=== PATIENT | female | born 1985 | race Caucasian/White ===

== ENCOUNTER 2018-04-01 18:05 | Emergency (ER) | payer OTHER ==
[2018-04-01 19:27] VITALS: BP 129/65
[2018-04-01] MEDS ORDERED: Ibuprofen TAB* 400 MG PO ONE (19:31)
--- NOTE | 2018-04-01 20:25 | RAD ---
INDICATION: Lateral foot pain after hitting foot on monkey bars COMPARISON: None. TECHNIQUE: 3 views of the left foot were obtained. FINDINGS: The adequately corticated bones are properly aligned. Joint spaces appear maintained. No fracture, dislocation or focal bony abnormality is seen. IMPRESSION: Normal radiograph of the left foot. If the patient's symptoms persist, follow-up imaging is recommended.
--- NOTE | 2018-04-01 21:29 | ED ---
Abigail Cazares Jade, scribed for Henry Humphrey MD on 04/01/18 at 1938 . Lower Extremity - HPI Summary HPI Summary: Pt is a 32 y/o female who presents to [facility] s/p foot injury at 16:15. She states that she fell off the monkey bars while playing with her child, and the bottom of her left foot struck the bar. Pt is unable to bear weight on her foot. She denies any injury to her hip, knee, or back. - History of Current Complaint Chief Complaint: UCLowerExtremity Stated Complaint: FOOT INJURY Time Seen by Provider: 04/01/18 19:24 Hx Obtained From: Patient Hx Last Menstrual Period: 2 weeks Mechanism Of Injury: Direct Blow Onset of Pain: Post Accident - 16:15 Onset/Duration: Still Present Severity Currently: Moderate Pain Intensity: 6 Pain Scale Used: 0-10 Numeric Location: Is Discrete @ - Left foot Aggravating Factor(s): Weight Bearing - Allergies/Home Medications Allergies/Adverse Reactions: Allergies Allergy/AdvReac Type Severity Reaction Status Date / Time morphine Allergy Severe Itching Verified 04/01/18 19:27 Home Medications: Home Medications Sertraline* [Zoloft*] 1 tab PO DAILY 04/01/18 [History Confirmed 04/01/18] PMH/Surg Hx/FS Hx/Imm Hx Endocrine/Hematology History: Denies: Hx Diabetes, Hx Thyroid Disease Cardiovascular History: Denies: Hx Hypertension, Hx Pacemaker/ICD Respiratory History: Denies: Hx Asthma, Hx Chronic Obstructive Pulmonary Disease (COPD) GI History: Denies: Hx Ulcer History: Denies: Hx Renal Disease Sensory History: Denies: Hx Hearing Aid Psychiatric History: Reports: Hx Attention Deficit Hyperactivity Disorder, Hx Depression, Hx Panic Disorder - WO; BE OK - Surgical History Surgery Procedure, Year, and Place: 2006 WISDOM TEETH REMOVED. 2012 RIGHT BREAST CYST DRAINED. 2014 C SECTION Infectious Disease History: No Infectious Disease History: Denies: Hx Hepatitis, Hx Human Immunodeficiency Virus (HIV), Hx of Known/ Suspected MRSA, Traveled Outside the [place] in Last 30 Days - Family History Family History: father had a ruptured lumbar disc - Social History Alcohol Use: Occasionally Substance Use Type: Reports: None Smoking Status (MU): Former Smoker Type: Cigarettes Amount Used/How Often: 1/2 ppd Have You Smoked in the Last Year: Yes Review of Systems Negative: Fever Positive: Myalgia - Left foot pain, Other - NEGATIVE: Hip, leg, or back pain All Other Systems Reviewed And Are Negative: Yes Physical Exam - Summary Physical Exam Summary: Appearance: Well appearing, no pain distress Skin: warm, dry, reflects adequate perfusion Head/face: normal Eyes: EOMI, CLEMENCIA ENT: normal Neck: supple, non-tender Respiratory: CTA, breath sounds present Cardiovascular: RRR, pulses symmetrical Abdomen: non-tender, soft Bowel Sounds: present Musculoskeletal: strength/ROM intact. Calf soft. Slight ecchymosis and edema over lateral aspect of left mid-foot. Intact Achilles tendon. No medial or lateral malleolar tenderness. No tenderness at talus and cuboid. Tender at head of fifth metatarsal Neuro: normal, sensory motor intact, A&Ox3 Triage Information Reviewed: Yes Vital Signs On Initial Exam: Initial Vitals Temp Pulse Resp BP Pulse Ox 98.1 F 76 16 129/65 100 04/01/18 19:20 04/01/18 19:20 04/01/18 19:20 04/01/18 19:20 04/01/18 19:20 Vital Signs Reviewed: Yes Procedures - Procedure Summary Procedure Summary: CLINTON wrap around left foot. Diagnostics - Vital Signs Vital Signs Temp Pulse Resp BP Pulse Ox 04/01/18 19:20 98.1 F 76 16 129/65 100 - Laboratory Lab Statement: Any lab studies that have been ordered have been reviewed, and results considered in the medical decision making process. Lower Extremity Course/Dx - Course Course Of Treatment: X-rays are negative. Minimal bruising and negligible swelling. Symptomatically. Patient is ambulatory. - Diagnoses Differential Diagnosis/HQI/PQRI: Positive: Other - Fracture versus contusion Provider Diagnoses: Contusion of left foot Discharge - Sign-Out/Discharge Documenting (check all that apply): Discharge/Admit/Transfer - Discharge - Discharge Plan Condition: Good Disposition: HOME Patient Education Materials: Contusion in Adults (ED) Referrals: Donovan Alonso MD [Primary Care Provider] - Additional Instructions: Ice, elevate, Clinton wrap for comfort. Weight-bear as tolerated. Return if worse , new symptoms or other concerns as discussed. - Billing Disposition and Condition Condition: GOOD Disposition: Home The documentation as recorded by the Abigail leroy Jade accurately reflects the service I personally performed and the decisions made by me, Henry Humphrey MD.
== END 2018-04-01 19:50 | disposition home or self-care (01) ==
LOC: UCEAST 18:05
DX: S90.32XA Contusion of left foot, initial encounter (principal); W09.2XXA Fall on or from jungle gym, initial encounter; Y93.89 Activity, other specified; Y92.838 Other recreation area as the place of occurrence of the external cause; Z88.5 Allergy status to narcotic agent; F90.9 Attention-deficit hyperactivity disorder, unspecified type; F41.0 Panic disorder [episodic paroxysmal anxiety]; F32.9 Major depressive disorder, single episode, unspecified; Z87.891 Personal history of nicotine dependence
CPT/HCPCS: 99212; A9270-GY; G0463

== ENCOUNTER 2019-05-21 15:31 | Inpatient (IN) | payer OTHER ==
[2019-05-21] MEDS ORDERED: Lactated Ringers 1000 ML Bag* 1,000 ML IV ONE (16:13)
[2019-05-21] MEDS ORDERED: Buffered Lidocaine 1% SYRIN* 1 ML/SYRINGE INTRADERM ONE (16:13)
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
[2019-05-21] MEDS ORDERED: Penicillin G Potassium IV* 5,000,000 UNITS in NS 0.9% 100 ML* 100 ML IVPB ONE (16:30)
[2019-05-21] MEDS ORDERED: Lactated Ringers 1000 ML Bag* 1,000 ML IV SCH ×2 (17:00→21:00)
[2019-05-21 17:30] LABS: ABS Basophils 0.1 10^3/ul (0-0.2); ABS Lymphocytes 1.3 10^3/ul (1.0-4.8); ABS Monocytes 1.5 10^3/ul (0-0.8); ABS Neutrophils 20.2 10^3/ul (1.5-7.7); Hematocrit 32 % (35-47); Hemoglobin 9.9 g/dL (12.0-16.0); Lymphocyte % 5.7 %; Mean Corpuscular HGB Conc 31 g/dL (31-36); Mean Corpuscular Hemoglobin 22 pg (27-31); Mean Corpuscular Volume 71 fL (80-97); Mean Platelet Volume 9.6 fL (7.4-10.4); Platelet Count 191 10^3/uL (150-450); Red Blood Count 4.49 10^6 /uL (3.70-4.87); Red Cell Distribution Width 19 % (10-15); White Blood Count 23.1 10^3/uL (3.5-10.8)
[2019-05-21 17:49] LABS: Albumin 3.4 g/dL (3.2-5.2); Albumin/Globulin Ratio 1.2 (1-3); BUN/Creatinine Ratio 11.1 (8-20); Calcium 9.1 mg/dL (8.6-10.3); EGFR African American 133.4 (>60); EGFR Non-African American 110.2 (>60); Globulin 2.8 g/dL (2-4); Potassium 3.9 mmol/L (3.5-5.0); Total Bilirubin 1.3 mg/dL (0.2-1.0); Total Protein 6.2 g/dL (6.4-8.9)
[2019-05-21 17:55] LABS: Microcytosis 2+; Polychromasia 1+
[2019-05-21] MEDS: Penicillin G Potassium IV* 2,500,000 UNITS in NS 0.9% 100 ML* 100 ML IVPB SCH (18:02)
[2019-05-21 18:14] LABS: Hepatitis B Surface Antigen Negative (Negative)
[2019-05-21] MEDS ORDERED: ceFOXitin 2 GM IVPREMIX* 2 GM/50 ML BAG IVPB ONE (18:17)
[2019-05-21] MEDS ORDERED: ceFOXitin 2 GM IVPREMIX* 2 GM/50 ML BAG ONE (18:29)
[2019-05-21 18:32] LABS: Hepatitis C Antibody Negative (Negative)
[2019-05-21 18:37] LABS: HIV 4th Generation Negative (Negative)
[2019-05-21] MEDS ORDERED: Ondansetron INJ* 2 MG/ML VIAL ONE (19:20)
[2019-05-21] MEDS ORDERED: Ketorolac INJ* 30 MG/ML 1 ML VIAL ONE (19:20)
[2019-05-21] MEDS ORDERED: OXYTOCIN* 10 UNITS/ML 1 ML VIAL ONE (19:20)
[2019-05-21] MEDS ORDERED: Phenylephrine 40 MCG/ML SYRINGE ONE (19:20)
[2019-05-21] MEDS ORDERED: Acetaminophen IV 1GM/100ML * 1,000 MG/100 ML VIAL IVPB ONE (19:31)
[2019-05-21] MEDS ORDERED: DiMENhydriNATE IV* 50 MG/ML VIAL IV PUSH PRN (19:31)
[2019-05-21] MEDS ORDERED: Naloxone* 0.4 MG/ML 1 ML VIAL IV PRN (19:31)
[2019-05-21] MEDS ORDERED: EPHEDrine (Pressors)* 50 MG/ML VIAL ONE (19:36)
[2019-05-21] MEDS ORDERED: Zolpidem TAB* 5 MG PO PRN (20:04)
[2019-05-21] MEDS ORDERED: Glycerin ADULT SUPP PR PRN (20:04)
[2019-05-21] MEDS ORDERED: Dibucaine 1% 28.35 GM TUBE PR PRN (20:04)
[2019-05-21] MEDS ORDERED: Witch Hazel PAD* JAR TOPICAL PRN (20:04)
[2019-05-21] MEDS: Acetaminophen TAB* 325 MG PO PRN (21:37)
[2019-05-21] MEDS: Simethicone TAB* 80 MG TAB.CHEW PO SCH (21:37)
[2019-05-21] MEDS: Docusate CAP* 100 MG PO SCH (21:37)
[2019-05-22 01:04] LABS: Urine Benzodiazepine Screen None Detected (None Detect); Urine Opiates Screen None Detected (None Detect)
[2019-05-22] MEDS: Ketorolac INJ* 30 MG/ML 1 ML VIAL IV SCH ×4 (02:09→21:00)
[2019-05-22] MEDS: Acetaminophen TAB* 325 MG PO PRN ×2 (06:02→10:52)
[2019-05-22] MEDS ORDERED: diPHENhydraMINE PO* 25 MG PO ONE (06:30)
[2019-05-22] MEDS: oxyCODONE TAB* 5 MG TAB PO PRN ×3 (06:35→15:05)
[2019-05-22] MEDS: Simethicone TAB* 80 MG TAB.CHEW PO SCH ×4 (08:18→21:00)
[2019-05-22] MEDS: Docusate CAP* 100 MG PO SCH ×3 (08:18→21:00)
[2019-05-22 09:57] LABS: ABS Lymphocytes 0.9 10^3/ul (1.0-4.8); ABS Monocytes 1.3 10^3/ul (0-0.8); ABS Neutrophils 12.5 10^3/ul (1.5-7.7); Hematocrit 25 % (35-47); Hemoglobin 8.1 g/dL (12.0-16.0); Lymphocyte % 6.3 %; Mean Corpuscular HGB Conc 32 g/dL (31-36); Mean Corpuscular Hemoglobin 23 pg (27-31); Mean Corpuscular Volume 71 fL (80-97); Platelet Count 171 10^3/uL (150-450); Red Blood Count 3.56 10^6 /uL (3.70-4.87); Red Cell Distribution Width 19 % (10-15); White Blood Count 14.7 10^3/uL (3.5-10.8)
[2019-05-22] MEDS: Ferrous Gluconate TAB* 324 MG TAB PO SCH ×2 (10:51→21:29)
[2019-05-22] MEDS ORDERED: Calcium Carbonate CHEW TAB* 500 MG (TUMS) PO PRN (17:53)
[2019-05-22] MEDS: oxyCODONE/Acetamin 5/325 MG* TAB PO PRN ×2 (19:09→23:10)
[2019-05-22] MEDS: Penicillin G Potassium IV* 2,500,000 UNITS in NS 0.9% 100 ML* 100 ML IVPB SCH (21:30)
[2019-05-22] MEDS ORDERED: Ibuprofen TAB* 600 MG PO SCH (23:45)
[2019-05-23] MEDS: Ibuprofen TAB* 600 MG PO SCH ×3 (03:00→16:34)
[2019-05-23] MEDS: oxyCODONE/Acetamin 5/325 MG* TAB PO PRN ×2 (05:07→11:05)
[2019-05-23 07:48] VITALS: BP 104/57
[2019-05-23] MEDS: Simethicone TAB* 80 MG TAB.CHEW PO SCH ×3 (08:18→16:35)
[2019-05-23] MEDS: Docusate CAP* 100 MG PO SCH ×2 (08:19→14:37)
[2019-05-23] MEDS: Ferrous Gluconate TAB* 324 MG TAB PO SCH (08:36)
--- NOTE | 2019-05-23 12:05 | PN ---
Progress Note - Progress Note Date of Service: 05/23/19 - POD#2 s/p repeat section after failure of trial of labor after CS Note: Patient is 33 year old with no care , POD #2 s/p Repeat section who states she had labor for several days at home attempting TOLAC but stalled in progress at home and came to the hospital for evaluation and delivery. She is having incisional pain and gas pain. She took 2 percoset last night and again this morning. She says it makes her and the baby sleepy and wants to take less narcotic pain medicine. She has passed flatus but no bowel movement. She had decreased appetite until this morning. She is tried regular diet this morning. She is able to void urine without difficulty. Patient is breast feeding . Vital Signs Temp 97.7 F 05/23/19 07:46 Pulse 109 05/23/19 07:46 Resp 16 05/23/19 11:05 BP 104/57 05/23/19 07:46 Pulse Ox 96 05/23/19 07:46 Intake & Output 05/22/19 05/23/19 05/23/19 18:59 06:59 18:59 Output Total 2650 Balance -2650 Output: Urine 400 Isaac 2250 abdomen: soft, distended, mild tenderness, incision dry and intact lochia: scant extremities: nontender, no edema Laboratory Results - last 24 hr 05/21/19 16:55 Syphilis IgG Antibody Negative 05/21/19 05/21/19 05/21/19 16:55 16:55 16:55 WBC 23.1 H RBC 4.49 Hgb 9.9 L Hct 32 L MCV 71 L MCH 22 L MCHC 31 RDW 19 H Plt Count 191 MPV 9.6 Neut % (Auto) 87.6 Lymph % (Auto) 5.7 [place] % (Auto) 6.5 Eos % (Auto) 0.0 Baso % (Auto) 0.2 Absolute Neuts (auto) 20.2 H Absolute Lymphs (auto) 1.3 Absolute Monos (auto) 1.5 H Absolute Eos (auto) 0.0 Absolute Basos (auto) 0.1 Absolute Nucleated RBC 0.0 Nucleated RBC % 0.0 Polychromasia 1+ Anisocytosis 2+ Microcytosis 2+ Macrocytosis 1+ Sodium 125 L Potassium 3.9 Chloride 94 L Carbon Dioxide 16 L Anion Gap 15 H BUN 7 Creatinine 0.63 Est GFR ( Amer) 133.4 Est GFR (Non-Af Amer) 110.2 BUN/Creatinine Ratio 11.1 Glucose 125 H Calcium 9.1 Total Bilirubin 1.30 H AST 21 ALT 9 Alkaline Phosphatase 181 H Total Protein 6.2 L Albumin 3.4 Globulin 2.8 Albumin/Globulin Ratio 1.2 Urine Opiates Screen Ur Barbiturates Screen Ur Phencyclidine Scrn Ur Amphetamines Screen U Benzodiazepines Scrn Urine Cocaine Screen U Cannabinoids Screen Syphilis IgG Antibody Hep Bs Antigen Hepatitis C Antibody Hepatitis C Ab Index HIV 1&2 Ab/P24 Ag 4thGn Rubella Screen Blood Type O Positive Antibody Screen Negative 05/21/19 05/21/19 05/22/19 16:55 16:55 00:37 WBC RBC Hgb Hct MCV MCH MCHC RDW Plt Count MPV Neut % (Auto) Lymph % (Auto) [place] % (Auto) Eos % (Auto) Baso % (Auto) Absolute Neuts (auto) Absolute Lymphs (auto) Absolute Monos (auto) Absolute Eos (auto) Absolute Basos (auto) Absolute Nucleated RBC Nucleated RBC % Polychromasia Anisocytosis Microcytosis Macrocytosis Sodium Potassium Chloride Carbon Dioxide Anion Gap BUN Creatinine Est GFR ( Amer) Est GFR (Non-Af Amer) BUN/Creatinine Ratio Glucose Calcium Total Bilirubin AST ALT Alkaline Phosphatase Total Protein Albumin Globulin Albumin/Globulin Ratio Urine Opiates Screen None detected Ur Barbiturates Screen None detected Ur Phencyclidine Scrn None detected Ur Amphetamines Screen None detected U Benzodiazepines Scrn None detected Urine Cocaine Screen None detected U Cannabinoids Screen None detected Syphilis IgG Antibody Negative Hep Bs Antigen Negative Hepatitis C Antibody Negative Hepatitis C Ab Index 0.01 HIV 1&2 Ab/P24 Ag 4thGn Negative Rubella Screen Immune Blood Type Antibody Screen 05/22/19 09:47 WBC 14.7 H RBC 3.56 L Hgb 8.1 L Hct 25 L MCV 71 L MCH 23 L MCHC 32 RDW 19 H Plt Count 171 MPV 9.0 Neut % (Auto) 84.9 Lymph % (Auto) 6.3 [place] % (Auto) 8.7 Eos % (Auto) 0.0 Baso % (Auto) 0.1 Absolute Neuts (auto) 12.5 H Absolute Lymphs (auto) 0.9 L Absolute Monos (auto) 1.3 H Absolute Eos (auto) 0.0 Absolute Basos (auto) 0.0 Absolute Nucleated RBC 0.0 Nucleated RBC % 0.0 Polychromasia Anisocytosis Microcytosis Macrocytosis Sodium Potassium Chloride Carbon Dioxide Anion Gap BUN Creatinine Est GFR ( Amer) Est GFR (Non-Af Amer) BUN/Creatinine Ratio Glucose Calcium Total Bilirubin AST ALT Alkaline Phosphatase Total Protein Albumin Globulin Albumin/Globulin Ratio Urine Opiates Screen Ur Barbiturates Screen Ur Phencyclidine Scrn Ur Amphetamines Screen U Benzodiazepines Scrn Urine Cocaine Screen U Cannabinoids Screen Syphilis IgG Antibody Hep Bs Antigen Hepatitis C Antibody Hepatitis C Ab Index HIV 1&2 Ab/P24 Ag 4thGn Rubella Screen Blood Type Antibody Screen Assessment: Patient is POD#2 with no care, failed home , anemia, MBT O positive, rubella immune, hep B surface antigen negative, syphilis negative anemia Plan: encourage ambulation, diet as tolerated, iron supplementation when bowel function improves. Meenakshi Almanzar MD
[2019-05-23] MEDS: Acetaminophen TAB* 325 MG PO PRN (18:33)
[2019-05-24 16:45] LABS: Varicella IgG Antibody Index 0.8; Varicella-Zoster IgG Antibody Negative
[2019-05-25 00:38] LABS: Varicella-Zoster IgM Antibody Negative (Negative)
--- NOTE | 2019-05-28 16:23 | OP ---
CC: Dr. Pires, [facility] * DATE OF OPERATION: 05/21/19 - ROOM #117 DATE OF : 89 SURGEON: Jesús Chin MD PUBLIC HE[employer] SOCIAL WORKER: Dr. Pires. ANESTHESIA: Spinal. PRE-OP DIAGNOSES: at 40 weeks by the patient's last menstrual period , no care, prior section, laboring at home with an arrest disorder. POST-OP DIAGNOSES: at 40 weeks by the patient's last menstrual period , no care, prior section, laboring at home with an arrest disorder. OPERATIVE PROCEDURE: Repeat low transverse section. ESTIMATED BLOOD LOSS: 900 cc. FLUIDS: She received 2200 cc of IV crystalloid fluid. She had also received methylene blue about 55 cc which was noted in her Isaac bag. URINE OUTPUT: 225 cc of blood tinged urine. FINDINGS: Delivery of a male weighing 8 pounds 8 ounces with Apgars of 7 and 9, thick meconium fluid with a nuchal cord x1, and a direct occiput posterior asynclitic presentation. The placenta was grossly intact and sent to Pathology. The uterus, adnexa, bowel, and bladder were within normal limits. COMPLICATIONS: She had a vaginal laceration on her lateral aspect of the vagina upon delivery of the head. DESCRIPTION OF PROCEDURE: The patient was taken to the operating room, where she was identified. She was placed on the operating table, where a spinal anesthetic was obtained without difficulty. She was then placed in the supine position with a leftward tilt, prepped and draped in a normal sterile fashion. A Pfannenstiel skin incision was made with a knife and carried through to the underlying layer of fascia. The fascia was then nicked in the midline and extended laterally with curved Cabrales scissors. The fascia was then grasped superiorly and inferiorly with Lucrecia clamps and dissected off sharply from the rectus muscle. The rectus muscle was in the midline bluntly. The peritoneum was identified, grasped with pickups, and entered sharply with Metzenbaum scissors and extended superiorly and inferiorly sharply. A bladder blade was inserted into the patient's abdomen and bladder flap was created using Metzenbaum scissors, over which the bladder blade was then reinserted. A low transverse uterine incision was made with a knife and extended laterally with bandage scissors. The infant's head was then grasped and delivered atraumatically. Nuchal cord x1 was reduced. Thick meconium fluid was noted. The rest of the infant's body was then delivered. The cord was clamped and cut and the was handed off to awaiting cardiovascular surgical tech. Cord blood and cord gases were obtained. The placenta was removed manually. The uterus was then exteriorized and cleared of all clot and debris using moist laparotomy sponges. The patient was then noted to have an incision extension from the lateral aspect of the uterine incision down towards the vagina. I then proceeded to close the extension using 0-Polysorb suture in a running locked fashion. I proceeded to close the entire uterine incision with 0-Polysorb suture in a running locked fashion with a second imbricating layer of 0-Polysorb suture with good hemostasis noted. At this point, the uterus was then returned to the patient's abdomen. The gutters were then cleared of all clot and debris using moist laparotomy sponges. I had given the patient methylene blue to assure there was no injury to the bladder. There was no methylene blue spillage on to the field. It all went into the Isaac catheter. This confirmed no apparent bladder lesion from the vaginal laceration. All the instruments and sponges were removed from the patient's abdomen. The peritoneum was then closed using 3 -0 Polysorb suture in a running fashion The fascia was closed using 0- Polysorb suture in a running fashion and the skin was closed with 4-0 Monocryl subcuticular stitch. The patient tolerated the procedure well. Sponge, lap and needle counts were correct x2. She was then transferred to the recovery room area in stable condition. [id number]/[facility] #: [id number] [facility] CENTERAlirio
== END 2019-05-23 20:27 | disposition home or self-care (01) | DRG 540 ==
LOC: MCHOB 15:31
PROVIDERS: ADMIT Obstetrics & Gynecology; ATTEND Obstetrics & Gynecology
PROC: 4A1HXCZ Monitoring of Products of Conception, Cardiac Rate, External Approach (ICD-10-PCS; 2019-05-21)
PROC: 10D00Z1 Extraction of Products of Conception, Low, Open Approach (ICD-10-PCS; principal; 2019-05-21 18:35)
DX: O66.41 Failed attempted vaginal birth after previous cesarean delivery (principal); O71.4 Obstetric high vaginal laceration alone; O34.211 Maternal care for low transverse scar from previous cesarean delivery; O99.214 Obesity complicating childbirth; O77.0 Labor and delivery complicated by meconium in amniotic fluid; O76 Abnormality in fetal heart rate and rhythm complicating labor and delivery; O62.1 Secondary uterine inertia; O69.81X0 Labor and delivery complicated by cord around neck, without compression, not applicable or unspecified; O48.0 Post-term pregnancy; O90.81 Anemia of the puerperium; Z3A.40 40 weeks gestation of pregnancy; Z37.0 Single live birth; Z88.5 Allergy status to narcotic agent
CPT/HCPCS: 36415; 80053; 80307; 85025; 86762; 86780; 86787; 86803; 86850; 86900; 86901; 87070; 87077; 87340; 87389; 99283; 99460; 99464; A9270-GY; J0694; J1885; J2405; J2540; J2590